=== PATIENT | female | born 1990 | race Two or more races ===

== ENCOUNTER 2022-04-24 01:11 | Emergency (ER) | payer MEDICAID, OTHER ==
[~2022-04-24] VITALS: Ht 144.8 cm; Wt 66.0 kg
[2022-04-24 01:48] VITALS: BP 110/71
[2022-04-24] MEDS ORDERED: SULF400T11 PO (07:01)
[2022-04-24] MEDS ORDERED: IBUP800T27 PO (07:01)
== END 2022-04-24 07:15 | disposition home or self-care (01) ==
LOC: ER 01:11
DX: S30.860A Insect bite (nonvenomous) of lower back and pelvis, initial encounter (principal); W57.XXXA Bitten or stung by nonvenomous insect and other nonvenomous arthropods, initial encounter; Y93.89 Activity, other specified; Y92.89 Other specified places as the place of occurrence of the external cause; Y99.8 Other external cause status; F17.210 Nicotine dependence, cigarettes, uncomplicated